=== PATIENT | male | born 1985 | race Caucasian/White ===

== ENCOUNTER 2024-07-08 12:29 | Emergency (ER) | payer OTHER, SELFPAY ==
[2024-07-08 12:31] VITALS: BP 152/106
[2024-07-08 12:57] LABS: % Basophils 1.1 % (0-2); % Eosinophils 1.5 % (0-6); % Immature Granulocytes 0.6 % (0-0.5); % Lymphocytes 32.8 % (20.5-51.1); % Monocytes 5.2 % (1.7-9.3); % Neutrophils 58.8 % (42.2-75.2); Absolute Basophils 0.1 10^3/uL (0-0.2); Absolute Eosinophils 0.1 10^3/uL (0-0.7); Absolute Immature Granulocytes 0.1 10^3/uL (0-0.05); Absolute Monocytes 0.5 10^3/uL (0.1-0.6); Absolute Neutrophils 5.3 10^3/uL (1.4-6.5); Hematocrit 43.4 % (39.0-52.0); Hemoglobin 15.5 g/dL (13.0-18.0); Mean Corp Hgb Conc. 35.7 g/dL (33.0-37.0); Mean Corpuscular Hgb 28.3 pg (27.0-31.0); Mean Corpuscular Volume 79.2 fL (80.0-94.0); Mean Platelet Volume 10.2 fL (7.4-10.4); Nucleated Red Blood Cells % 0 % (-); Platelet Count 340 10^3/uL (130-400); Red Blood Cell Count 5.48 10^6/uL (4.70-6.10); Red Cell Dist. Width 12.9 % (11.5-14.5); White Blood Cell Count 9.1 10^3/uL (4.8-10.8)
[2024-07-08 13:13] LABS: ALT (SGPT) 23 U/L (0-50); AST (SGOT) 22 U/L (17-59); Albumin 3.7 g/dl (3.5-5.0); Alkaline Phosphatase 103 U/L (38-126); Blood Urea Nitrogen 24 mg/dl (9-20); Calcium 9.6 mg/dl (8.4-10.2); Carbon Dioxide 19 mmol/L (22-30); Chloride 102 mmol/L (98-107); Glucose 406 mg/dl (70-99); Lipase 276 U/L (23-300); Sodium 131 mmol/L (135-145); Total Bilirubin 0.6 mg/dl (0.2-1.3); Total Protein 7.1 g/dl (6.3-8.2); eGFR > 60.00
[2024-07-08 13:17] VITALS: BMI 34.6
--- NOTE | 2024-07-08 13:21 | ED.GENMED ---
History of Present Illness
General
Chief Complaint: Abnormal Lab Value
Source: patient
Time Seen by Provider: 07/08/24 12:44
History of Present Illness
History of Present Illness:
38-year-old male with no documented past medical history presenting to the emergency department for evaluation after he reports he had abnormal blood work done a primary care provider noting his triglycerides were significantly elevated. Patient
states it has been at least 5 or 6 years since he had blood work done and states he followed up with his primary care provider for routine appointment and annual lab work. Patient states he feels as if he is in his usual state of health. He notes
about 2 weeks ago he started going back to the gym although he does note he has not been eating very well recently. Patient denies any abdominal pain, nausea, vomiting, chest pain, shortness of breath, urinary symptoms or any other concerns.
Past History
Past History
ED Past Medical History: None
ED Past Surgical History: Orthopedic
Social History
Tobacco: Non-smoker
Alcohol: Occasional
Drug: None
Personal: Single
Living: with family
Review of Systems
Review of Systems
All Other Systems: ROS reviewed and negative except as documented in HPI and ROS
Phy Exam
Physical Exam
Physical Exam:
GENERAL: Alert , in no apparent distress
EYE: conjunctiva clear
NECK: Supple
ENT: o/p clr, mmm.
CARDIAC: Regular rate and rhythm
LUNGS: Clear breath sounds bilaterally, no acute respiratory distress, no wheezes/rales/rhonchi
NEUROLOGICAL: Alert and oriented
SKIN: Warm and dry, skin intact.
MUSCULOSKELETAL: well perfused.
PSYCH: Normal and appropriate interaction.
Scores
Heart Failure Risk
Heart Failure Risk Score: Not Applicable
Heart Score for Chest Pain Patients
STEMI patient?: Not applicable
Withdrawal Assessment of Alcohol
Withdrawal Assessment Completed?: Not applicable
Course
Orders/Labs/Results
Orders:
Orders
07/08/24 12:44
Complete Blood Count/With Diff Urgent
Comprehensive Metabolic Panel Urgent
Lipase Urgent
Abnormal Lab Results
07/08/24
12:44
MCV 79.2 L fL
(80.0-94.0)
Abs Immat Gran (auto) 0.1 H 10^3/uL
(0-0.05)
Immature Gran % 0.6 H %
(0-0.5)
Sodium 131 L mmol/L
(135-145)
Carbon Dioxide 19 L mmol/L
(22-30)
BUN 24 H mg/dl
(9-20)
Glucose 406 H mg/dl
(70-99)
07/08/24 12:44
07/08/24 12:44
Vital Signs
Initial and Last Documented VS:
Initial Vital Signs
Temp Pulse Resp BP Pulse Ox
98.3 F 101 18 152/106 96
07/08/24 12:31 07/08/24 12:31 07/08/24 12:31 07/08/24 12:31 07/08/24 12:31
Last Documented Vital Signs
Temp Pulse Resp BP Pulse Ox
98.3 F 101 18 152/106 96
07/08/24 12:31 07/08/24 12:31 07/08/24 12:31 07/08/24 12:31 07/08/24 12:31
MDM/Problems Addressed
Differential Diagnosis Includes:
Asymptomatic hypertriglyceridemia, hypercholesterolemia, diabetes, no concern for acute emergent pathologies
MDM/Problems Addressed:
38-year-old male presenting to the ER at the request of primary care provider for evaluation after he reportedly had lab work done as an outpatient a few days ago which showed a significantly elevated triglyceride levels. Patient is in no acute
distress and has no concerns at this time. Patient does note that he previously weighed well over 400 pounds and has had considerable purposeful weight loss. He does admit to needing to make better lifestyle modifications. Will repeat labs. Will
contact patient's primary care provider to discuss further.
*Pulse Oximetry
Patient hypoxic: no
*Critical Care Note
Total Time (30-74mins, 75-104mins- exclusive of procedures): Not Applicable
Data Reviewed
Review of Other/Old Records Reveals: Labs (Significant hypertriglyceridemia, hypercholesterolemia, diabetes)
Patient Management
Escalation/DeEscalation of care consider admission/obs:
I spoke to the head nurse at patient's primary care provider's office. Informed them that at this time patient has no indication for admission and can be treated as an outpatient. They did not draw a hemoglobin A1c as part of patient's labs and I
did recommend this be performed. Will initiate patient on 500 mg of metformin twice daily. Nurse Jessie states that patient can contact the office back and they will get a follow-up visit scheduled for the appointment and closely monitor his
treatment.
ED Attending Note
-
Portions of this chart may have been created with voice recognition software.� Occasional wrong word or��sound alike� substitutions may have occurred due to the inherent limitations of voice recognition software.
Discharge Plan
Departure
Patient Disposition: Home (Routine Discharge)
Date of Disposition: 07/08/24
Time of Disposition: 13:21
Patient with high blood pressure during this ER visit?: Yes
Discharge Problem:
Diabetes
Instructions: Type 2 diabetes - Discharge instructions
Prescriptions:
New
metformin 500 mg tablet
500 mg PO BID Qty: 60 0RF
Referrals:
Sathish Brannon DO [Family Provider] -
Interventions
Interventions:
*Risk Screen - Suicide Last Done: 07/08/24 12:31
*General Assessment Last Done: 07/08/24 12:31
*Neglect/Abuse Screening Last Done: 07/08/24 12:31
*Nursing Disposition Last Done: 07/08/24 13:34
Discharge Date and Time
Discharge Date/Time: 07/08/24 13:35
Print Language: MAORI
== END 2024-07-08 13:35 | disposition home or self-care (01) ==
LOC: EMR 12:29
PROVIDERS: Emergency Medicine; EMERGENCY PHYSICIAN Emergency Medicine; FAMILY PHYSICIAN Family Medicine
DX: E11.9 Type 2 diabetes mellitus without complications (principal); E78.00 Pure hypercholesterolemia, unspecified
CPT/HCPCS: 99283; 80053; 83690; 85025